=== PATIENT | female | born 1940 | race Caucasian/White ===

== ENCOUNTER 2025-04-24 09:06 | Day surgery (SDC) | payer MEDICARE, SELFPAY ==
[2025-04-24 11:21] VITALS: BMI 23.5
== END 2025-04-24 12:10 | disposition home or self-care (01) ==
LOC: CATH 09:06
PROVIDERS: ATTENDING PHYSICIAN Internal Medicine Interventional Cardiology; FAMILY PHYSICIAN Family Medicine; OTHER PHYSICIAN Internal Medicine Cardiovascular Disease
DX: I48.0 Paroxysmal atrial fibrillation (principal); Z79.01 Long term (current) use of anticoagulants; I44.0 Atrioventricular block, first degree; E78.5 Hyperlipidemia, unspecified; I48.92 Unspecified atrial flutter
CPT/HCPCS: 92960; 93005